=== PATIENT | female | born 1990 | race Caucasian/White ===

== ENCOUNTER 2021-05-03 13:49 | Emergency (ER) | payer BC ==
[2021-05-03 15:12] LABS: HEMOGLOBIN 12.1 gm/dl (12.3-15.3); RED BLOOD COUNT 3.94 M/UL (4.00-5.10)
[2021-05-03 15:39] LABS: BUN/CREATININE RATIO 18 (0-10)
[2021-05-03] MEDS ORDERED: CEFDINIR300 MG PO (16:50)
[2021-05-03] MEDS ORDERED: DIFLUCAN150 MG PO (16:56)
== END 2021-05-03 17:00 | disposition home or self-care (01) ==
LOC: ER1 13:49
PROVIDERS: Physician Assistant
DX: R10.9 Unspecified abdominal pain (principal); R30.0 Dysuria
CPT/HCPCS: 80053; 81001; 84703; 85025; 87086; 99284